=== PATIENT | female | born 1990 | race Caucasian/White ===

== ENCOUNTER 2024-05-20 00:03 | Inpatient (IN) ==
[2024-05-20] MEDS ORDERED: OXYTOCIN 30 UNITS/NSS 30 UNITS/500 ML BAG IV PRN (01:09)
[2024-05-20] MEDS ORDERED: LIDOCAINE 1% LOCAL 20 ML VIAL INFIL PRN (01:09)
[2024-05-20] MEDS: LACTATED RINGER'S 1,000 ML IV PRN (01:23)
[2024-05-20 01:55] LABS: Hematocrit (blood only) 37.1 % (37.0-47.0); Hemoglobin 12.4 g/dl (12.0-16.0); Mean Corpuscular Hemoglobin 27.4 pg (25.0-34.0); Mean Corpuscular Hgb Conc 33.4 g/dL (32.0-36.0); Mean Corpuscular Volume 81.9 fL (80.0-100.0); Mean Platelet Volume 10.5 fL (9.4-12.4); Platelet Count 255 K/uL (130-400); RDW Standard Deviation 40.7 fL (36.4-46.3); Red Blood Count 4.53 M/uL (4.20-5.40); White Blood Count 19.28 K/ul (4.8-10.8)
--- NOTE | 2024-05-20 04:23 | History & Physical Report ---
Date of Service May 20, 2024 Assessment & Plan (1) Supervision of elderly primigravida: Plan: PROM, patient is having some contractions but not yet a labor pattern. She is declining interventions at this time, declines use of Pitocin for labor contraction pattern. Does not desire epidural. She is aware of increased risk of infection after rupture of membranes. Will allow her to ambulate and reexamine, might be willing to consider Pitocin if not in labor by the morning. Admission and Anticipated Discharge Date Admission Date: May 20, 2024 History of Present Illness Chief Complaint: Leaking fluid Primary Care Provider: Tona Mccartney PA-C 33-year-old G1, P0 at 40 weeks 1 day, presented to labor and delivery after rupture of membranes for clear fluid at 8:30 PM on 05/19/2024. Positive movement, no vaginal bleeding. Is feeling contractions every few minutes. with advanced maternal age, otherwise uncomplicated. Group B strep negative. Allergies Allergy/AdvReac Type Severity Reaction Status Date / Time Penicillins Allergy Hives Verified 05/20/24 00:28 Home Medications Medication Instructions Recorded Confirmed Type prenat.vits,zohaib,[id number] 1 tab PO DAILY 10/04/23 05/20/24 History Patient History Surgical History S/P appendectomy Family History Mother Hypothyroid Psoriatic arthritis Father Hypertension Grandfather (Maternal) Myocardial infarction Grandmother (Maternal) Hypothyroid Family/Other Breast cancer great grandmother Grandmother (Paternal) Colorectal cancer, Onset Age: 70 Social History Smoking Status: Never smoker Do You Dip or Chew Tobacco: No; Hx Alcohol Use: No Hx Substance Use: No Preferred Language: Macedonian Communication Ability: Effective Assistant Account Executive Required: No Beliefs That Will Affect Care: None marital status: marital status details: Parag (30) [phone] Current Living Situation: Spouse Current Living Situation Comment: Parag current occupational status: unemployed Other Information That Helps Us Care for You: No Feels Safe at Home: Yes Safety Concerns: Feels Safe At This Time Assistive Devices: None Review of Systems All systems reviewed & are unremarkable except as noted in HPI & below Physical Exam Physical Exam: FHT category 1 Saxon irregular Cervix exam /-2, by RN. Grossly ruptured with positive nitrazine. Constitutional: WD/WN, vitals as above Respiratory: normal respiratory effort, lungs clear to auscultation no respiratory distress Cardiovascular: Rate/Rhythm: regular rate and regular rhythm Gastrointestinal (Abdomen): Inspection/Auscultation: abdomen normal to inspection Percussion/Palpation: abdomen soft; abdomen nontender Gravid. No s/s chorio or abruption. Skin: no rashes, warm and dry Psychiatric: A+Ox3, euthymic affect Results & Data Vital Signs (Past 12 Hours) Vital Signs Temp Pulse Resp BP 05/20/24 03:53 37.2 C 85 18 117/69 05/20/24 02:25 18 05/20/24 02:25 36.6 C 18 05/20/24 00:29 36.7 C 05/20/24 00:27 85 126/81 Coding Level of Care Code None Diagnoses Supervision of elderly primigravida O09.519
--- NOTE | 2024-05-20 08:09 | Labor Progress Brief Note ---
Date of Service May 20, 2024 Subjective Patient feels like ctx have spaced out. FHT Cat 1 Icard irreg SVE / Discussion about pitocin. She has not wanted to use this, voices concerns about quick transition and painful contractions. Discussed that her membranes have been ruptured since 8:30 last night, has not made cervical change. Recommended pitocin to improve contraction pattern with goal of vaginal delivery. Questions answered of both patient and FOB. She is agreeable, but would like to shower before starting pit. Will place orders. Assessment & Plan Admission and Anticipated Discharge Date Admission Date: May 20, 2024 Results & Data Vital Signs (Past 12 Hours) Vital Signs Temp Pulse Resp BP O2 Del Method 05/20/24 07:15 Room Air 05/20/24 07:08 90 114/69 05/20/24 06:47 37.0 C 05/20/24 05:19 18 05/20/24 05:19 37.4 C 86 18 119/66 05/20/24 03:53 37.2 C 85 18 117/69 05/20/24 02:25 18 05/20/24 02:25 36.6 C 18 05/20/24 00:29 36.7 C 20 05/20/24 00:27 85 126/81 Coding Level of Care Code None
[2024-05-20] MEDS: OXYTOCIN 30 UNITS/NSS 30 UNITS/500 ML BAG IV PRN (09:16)
[2024-05-20] MEDS: ONDANSETRON INJ 2 MG/ML 2 ML VIAL IV PRN (09:36)
--- NOTE | 2024-05-20 13:00 | Anesthesiology Consultation ---
Date of Service May 20, 2024 Assessment & Plan (1) Encounter for pre-operative examination: Chart Review Chart Review: Acceptable Risk for Labor Epidural History Height/Weight Height: 5 ft 4 in Weight: 80.739 kg Allergies Allergy/AdvReac Type Severity Reaction Status Date / Time Penicillins Allergy Hives Verified 05/20/24 00:28 Medications Home Medications Medication Instructions Recorded Confirmed Last Taken prenat.vits,zohaib,gzi-[id number]-ufttp 1 tab PO DAILY 10/04/23 05/20/24 05/17/24 Active Medications Generic Name Dose Route Start Last Admin Trade Name Freq PRN Reason Stop Dose Admin Oxytocin 30 units in 500 mls @ 7 mls/hr 05/20/24 01:09 05/20/24 11:40 Pitocin 30 Units/Nss IV 05/22/24 01:08 0.42 units/hr .Q24H PRN 7 mls/hr Labor Induction/Augmentation Titration Protocol 0.42 UNITS/HR Lactated Ringer's 1,000 mls @ 125 mls/hr 05/20/24 01:09 05/20/24 12:45 Lr IV 05/22/24 01:08 999 mls/hr .Q8H PRN Infusion L&D Protocol Protocol Ondansetron HCl 4 mg 05/20/24 09:31 05/20/24 09:36 Ondansetron Inj 2 Mg/Ml 2 Ml Vial IV 06/19/24 09:30 4 mg Q4H PRN Administration Nausea Past Medical History Medical History (Updated 05/20/24 @ 12:59 by Jerel Khoury MD) No pertinent past medical history Past Family History Family History Mother Hypothyroid Psoriatic arthritis Father Hypertension Grandfather (Maternal) Myocardial infarction Grandmother (Maternal) Hypothyroid Family/Other Breast cancer great grandmother Grandmother (Paternal) Colorectal cancer, Onset Age: 70 Past Surgical History Surgical History S/P appendectomy Social History Smoking Status: Never smoker Do You Dip or Chew Tobacco: No Hx Alcohol Use: No Hx Substance Use: No substance use type: does not use Physical Exam Vital Signs Last Vital Signs Temp 37.3 C 05/20/24 11:15 Pulse 89 05/20/24 12:56 Resp 18 05/20/24 11:15 BP 129/63 05/20/24 11:57 Pulse Ox 100 05/20/24 12:56 O2 Del Method Room Air 05/20/24 07:15 Testing Laboratory Results 05/20/24 01:27
[2024-05-20] MEDS: fentaNYL citrate PF 100 MCG/2 ML VIAL ONE (13:31)
[2024-05-20] MEDS: BUPIVACAINE 0.25% PF 30 ML VIAL ONE (13:31)
[2024-05-20] MEDS: LIDOCAINE 2%/EPINEPHRINE 1:200,000 20 ML PF ONE (13:31)
[2024-05-20] MEDS ORDERED: ONDANSETRON INJ 2 MG/ML 2 ML VIAL IV PRN ×2 (13:32→19:46)
[2024-05-20] MEDS ORDERED: BUPIVACAINE 0.25% PF 30 ML VIAL EPI PRN (13:32)
[2024-05-20] MEDS ORDERED: NALOXONE HCL 1 MG in SODIUM CHLORIDE 0.9% 1,000 ML IV PRN ×2 (13:32→19:46)
[2024-05-20] MEDS ORDERED: LIDOCAINE 2% MPF LOCAL 5 ML VIAL EPI PRN (13:32)
[2024-05-20] MEDS ORDERED: fentANYL 2 MCG/ML BUPIVacaine 0.125%-NSS 100ML BAG EPI PRN (13:32)
[2024-05-20] MEDS ORDERED: SODIUM CHLORIDE 0.9% PF INJ 10 ML VIAL EPI PRN (13:32)
[2024-05-20] MEDS ORDERED: fentaNYL citrate PF 100 MCG/2 ML VIAL EPI PRN (13:32)
[2024-05-20] MEDS ORDERED: NALOXONE HCL 0.4 MG/1 ML VIAL/CARP IV PRN ×2 (13:32→19:46)
[2024-05-20] MEDS ORDERED: ROPIVACAINE 0.5% PF 5 MG/ML 20 ML VIAL EPI PRN (13:32)
[2024-05-20] MEDS ORDERED: ePHEDrine sulfate 50 MG/ML AMP IV PRN ×2 (13:32→19:46)
[2024-05-20] MEDS: fentANYL 2 MCG/ML BUPIVacaine 0.125%-NSS 100ML BAG ONE (13:35)
[2024-05-20] MEDS: BUPIVACAINE 0.25% PF 30 ML VIAL EPI STA (13:52)
[2024-05-20] MEDS: LIDOCAINE 2%/EPINEPHRINE 1:200,000 20 ML PF EPI STA (13:53)
[2024-05-20] MEDS: SODIUM CHLORIDE 0.9% PF INJ 10 ML VIAL EPI STA (13:53)
[2024-05-20] MEDS: fentaNYL citrate PF 100 MCG/2 ML VIAL EPI STA (13:53)
--- NOTE | 2024-05-20 15:43 | Labor Progress Brief Note ---
Date of Service May 20, 2024 Patient was admitted with ruptured membranes over the evening by previous physician on-call she has excepted Pitocin and then became uncomfortable requested epidural heart rate category 1 her contractions while not perfect are occurring every 3 minutes sometimes every 2 minutes this is with external toco I have checked her cervix she is 1-1/2 cm 70% effaced -1 I do not think there is been any significant change since the previous exams although I have not done them reviewed we will continue to try and augment the contractions the patient also feels unwell with vomiting and are trying to hydrate as well Assessment & Plan Admission and Anticipated Discharge Date Admission Date: May 20, 2024 Results & Data Vital Signs (Past 12 Hours) Vital Signs Temp Pulse Resp BP Pulse Ox O2 Del Method 05/20/24 15:41 100 H 97 05/20/24 15:36 102 H 97 05/20/24 15:31 82 95 05/20/24 15:30 18 05/20/24 15:30 18 05/20/24 15:28 77 124/68 05/20/24 15:26 79 95 05/20/24 15:21 70 96 05/20/24 15:18 70 94 05/20/24 15:16 75 96 05/20/24 15:12 70 108/58 L 05/20/24 15:11 69 95 05/20/24 15:06 70 95 05/20/24 15:01 70 95 05/20/24 15:00 71 16 94 05/20/24 14:58 71 106/57 L 05/20/24 14:56 74 95 05/20/24 14:51 69 05/20/24 14:46 70 05/20/24 14:44 71 111/58 L 05/20/24 14:43 66 94 05/20/24 14:41 71 95 05/20/24 14:36 80 91 05/20/24 14:31 70 95 05/20/24 14:28 68 106/55 L 05/20/24 14:26 70 95 05/20/24 14:21 70 95 05/20/24 14:16 72 96 05/20/24 14:13 69 106/59 L 05/20/24 14:11 68 96 05/20/24 14:06 69 96 05/20/24 14:01 69 96 05/20/24 14:00 16 05/20/24 14:00 16 05/20/24 14:00 16 05/20/24 14:00 16 05/20/24 13:57 70 109/59 L 05/20/24 13:56 72 96 05/20/24 13:52 71 111/57 L 05/20/24 13:51 75 96 05/20/24 13:50 75 117/57 L 05/20/24 13:48 78 118/57 L 05/20/24 13:46 97 05/20/24 13:46 96 H 05/20/24 13:46 91 H 107/56 L 05/20/24 13:44 91 H 114/62 05/20/24 13:42 90 115/57 L 05/20/24 13:41 83 97 05/20/24 13:40 92 H 109/57 L 05/20/24 13:38 90 112/59 L 05/20/24 13:36 99 05/20/24 13:36 94 H 05/20/24 13:36 89 111/56 L 05/20/24 13:34 94 H 109/58 L 05/20/24 13:32 80 108/55 L 05/20/24 13:31 81 99 05/20/24 13:30 78 18 99/58 L 05/20/24 13:28 84 111/62 05/20/24 13:26 100 05/20/24 13:26 86 05/20/24 13:26 88 122/76 05/20/24 13:24 90 139/75 05/20/24 13:22 91 H 135/65 05/20/24 13:21 91 H 100 05/20/24 13:20 88 137/67 05/20/24 13:18 96 H 119/84 05/20/24 13:17 87 150/79 H 05/20/24 13:16 84 100 05/20/24 13:14 93 H 126/67 05/20/24 13:11 91 H 92 05/20/24 13:06 82 100 05/20/24 13:05 18 05/20/24 13:05 98.6 F 18 05/20/24 13:01 106 H 100 05/20/24 12:56 89 100 05/20/24 12:51 94 H 100 05/20/24 12:30 18 05/20/24 12:30 18 05/20/24 11:57 76 129/63 05/20/24 11:22 160 H 146/84 H 05/20/24 11:15 18 05/20/24 11:15 99.1 F 18 05/20/24 10:22 92 H 136/76 05/20/24 09:21 104 H 134/89 05/20/24 09:11 18 05/20/24 09:11 98.2 F 05/20/24 07:15 Room Air 05/20/24 07:08 90 114/69 05/20/24 06:47 98.6 F 05/20/24 05:19 18 05/20/24 05:19 99.3 F 86 18 119/66 05/20/24 03:53 99.0 F 85 18 117/69 Coding Level of Care Code None
[2024-05-20] MEDS: FAMOTIDINE 20MG IV PUSH 20 MG/5 ML SYR IV STA (16:11)
[2024-05-20] MEDS: ACETAMINOPHEN 325 MG TAB PO PRN (17:17)
--- NOTE | 2024-05-20 18:04 | Labor Progress Brief Note ---
Date of Service May 20, 2024 Cervix still 1 to 2 cm 70% effaced she has been ruptured membranes now for almost 22 hours her contractions are adequate in fact her frequency of contractions is 1-1/2 to 2 minutes I do not think I could increase the Pitocin at this stage I prefer not to use an IUPC in this situation. heart rate is currently category 1 earlier it was category 2 I think this might have been related to positioning or tachysystole Patient has a slight elevation in temperature she has been throwing up for most of the last 2 days though I am wondering if it was related to this but we also discussed the possibility of chorioamnionitis there is no heart rate elevation though I reviewed the situation in depth there has been really very slow progress and a slight temperature elevation I offered to continue induction and recheck her in an hour I also offered a at this stage we discussed why this would be an option specifically related to no real progress despite adequate contractions and additionally worry for prolonged rupture of membranes and subsequent infection. She will let us know her decision lengthy discussion section. The patient was counseled to the nature of the procedure including alternatives such as labor. Risks were discussed including bleeding infection injury to bowel bladder ureter vessels and even baby. Deep Vein thrombosis, pulmonary embolus discussed. Breakdown of incision reviewed. Deep vein thrombosis pulmonary embolus hernia and failure of the incision to heal were discussed Patient verbalized understanding of this and was given ample time to ask questions Assessment & Plan Admission and Anticipated Discharge Date Admission Date: May 20, 2024 Results & Data Vital Signs (Past 12 Hours) Vital Signs Temp Pulse Resp BP Pulse Ox O2 Del Method 05/20/24 17:56 92 H 97 05/20/24 17:51 97 H 97 05/20/24 17:48 18 05/20/24 17:48 99.3 F 18 05/20/24 17:46 92 H 97 05/20/24 17:41 92 H 97 05/20/24 17:36 94 H 97 05/20/24 17:31 104 H 129/75 97 05/20/24 17:26 129 H 97 05/20/24 17:21 127 H 96 05/20/24 17:16 111 H 97 05/20/24 17:11 108 H 96 05/20/24 17:06 18 05/20/24 17:06 99.7 F H 116 H 18 97 05/20/24 17:01 113 H 97 05/20/24 16:58 107 H 91 05/20/24 16:56 95 H 97 05/20/24 16:51 98 H 97 05/20/24 16:46 91 H 97 05/20/24 16:41 87 96 05/20/24 16:36 93 H 97 05/20/24 16:31 94 H 96 05/20/24 16:30 18 05/20/24 16:30 18 05/20/24 16:28 86 139/79 05/20/24 16:26 103 H 96 05/20/24 16:21 88 96 05/20/24 16:16 88 96 05/20/24 16:11 83 96 05/20/24 16:06 80 97 05/20/24 16:01 74 97 05/20/24 15:56 89 97 05/20/24 15:51 92 H 97 05/20/24 15:46 100 H 97 05/20/24 15:41 100 H 97 05/20/24 15:36 102 H 97 05/20/24 15:35 18 05/20/24 15:35 98.8 F 18 05/20/24 15:31 82 95 05/20/24 15:30 18 05/20/24 15:30 18 05/20/24 15:28 77 124/68 05/20/24 15:26 79 95 05/20/24 15:21 70 96 05/20/24 15:18 70 94 05/20/24 15:16 75 96 05/20/24 15:12 70 108/58 L 05/20/24 15:11 69 95 05/20/24 15:06 70 95 05/20/24 15:01 70 95 05/20/24 15:00 71 16 94 05/20/24 14:58 71 106/57 L 05/20/24 14:56 74 95 05/20/24 14:51 69 95 05/20/24 14:46 70 95 05/20/24 14:44 71 111/58 L 05/20/24 14:43 66 94 05/20/24 14:41 71 95 05/20/24 14:36 80 91 05/20/24 14:31 70 95 05/20/24 14:28 68 106/55 L 05/20/24 14:26 70 95 05/20/24 14:21 70 95 05/20/24 14:16 72 96 05/20/24 14:13 69 106/59 L 05/20/24 14:11 68 96 05/20/24 14:06 69 96 05/20/24 14:01 69 96 05/20/24 14:00 16 05/20/24 14:00 16 05/20/24 14:00 16 05/20/24 14:00 16 05/20/24 13:57 70 109/59 L 05/20/24 13:56 72 96 05/20/24 13:52 71 111/57 L 05/20/24 13:51 75 96 05/20/24 13:50 75 117/57 L 05/20/24 13:48 78 118/57 L 05/20/24 13:46 97 05/20/24 13:46 96 H 05/20/24 13:46 91 H 107/56 L 05/20/24 13:44 91 H 114/62 05/20/24 13:42 90 115/57 L 05/20/24 13:41 83 97 05/20/24 13:40 92 H 109/57 L 05/20/24 13:38 90 112/59 L 05/20/24 13:36 99 05/20/24 13:36 94 H 05/20/24 13:36 89 111/56 L 05/20/24 13:34 94 H 109/58 L 05/20/24 13:32 80 108/55 L 05/20/24 13:31 81 99 05/20/24 13:30 78 18 99/58 L 05/20/24 13:28 84 111/62 05/20/24 13:26 100 05/20/24 13:26 86 05/20/24 13:26 88 122/76 05/20/24 13:24 90 139/75 05/20/24 13:22 91 H 135/65 05/20/24 13:21 91 H 100 05/20/24 13:20 88 137/67 05/20/24 13:18 96 H 119/84 05/20/24 13:17 87 150/79 H 05/20/24 13:16 84 100 05/20/24 13:14 93 H 126/67 05/20/24 13:11 91 H 92 05/20/24 13:06 82 100 05/20/24 13:05 18 05/20/24 13:05 98.6 F 18 05/20/24 13:01 106 H 100 05/20/24 12:56 89 100 05/20/24 12:51 94 H 100 05/20/24 12:30 18 05/20/24 12:30 18 05/20/24 11:57 76 129/63 05/20/24 11:22 160 H 146/84 H 05/20/24 11:15 18 05/20/24 11:15 99.1 F 05/20/24 10:22 92 H 136/76 05/20/24 09:21 104 H 134/89 05/20/24 09:11 18 05/20/24 09:11 98.2 F 05/20/24 07:15 Room Air 05/20/24 07:08 90 114/69 05/20/24 06:47 98.6 F Coding Level of Care Code None
[2024-05-20] MEDS ORDERED: GENTAMICIN CONSULT ACTIVE PRN (18:37)
--- NOTE | 2024-05-20 18:41 | Labor Progress Brief Note ---
Date of Service May 20, 2024 Cervix still unchanged 1 to 2 cm there is now a tachycardia in the 160s at this stage she meets the criteria for CORHIO amnionitis. Start clinda and gent as penicillin allergy recommend patient agrees we discussed risks as mentioned in previous notes also increased risk of infection due to the current situation full informed consent range for low segment transverse section Assessment & Plan Admission and Anticipated Discharge Date Admission Date: May 20, 2024 Results & Data Vital Signs (Past 12 Hours) Vital Signs Temp Pulse Resp BP Pulse Ox O2 Del Method 05/20/24 18:36 104 H 97 05/20/24 18:31 96 H 97 05/20/24 18:29 106 H 140/80 05/20/24 18:26 105 H 96 05/20/24 18:21 100 H 97 05/20/24 18:16 101 H 97 05/20/24 18:11 98 H 97 05/20/24 18:06 96 H 97 05/20/24 18:01 100 H 97 05/20/24 17:56 92 H 97 05/20/24 17:51 97 H 97 05/20/24 17:48 18 05/20/24 17:48 99.3 F 18 05/20/24 17:46 92 H 97 05/20/24 17:41 92 H 97 05/20/24 17:36 94 H 97 05/20/24 17:31 104 H 129/75 97 05/20/24 17:26 129 H 97 05/20/24 17:21 127 H 96 05/20/24 17:16 111 H 97 05/20/24 17:11 108 H 96 05/20/24 17:06 18 05/20/24 17:06 99.7 F H 116 H 18 97 05/20/24 17:01 113 H 97 05/20/24 16:58 107 H 91 05/20/24 16:56 95 H 97 05/20/24 16:51 98 H 97 05/20/24 16:46 91 H 97 05/20/24 16:41 87 96 05/20/24 16:36 93 H 97 05/20/24 16:31 94 H 96 05/20/24 16:30 18 05/20/24 16:30 18 05/20/24 16:28 86 139/79 05/20/24 16:26 103 H 96 05/20/24 16:21 88 96 05/20/24 16:16 88 96 05/20/24 16:11 83 96 05/20/24 16:06 80 97 05/20/24 16:01 74 97 05/20/24 15:56 89 97 05/20/24 15:51 92 H 97 05/20/24 15:46 100 H 97 05/20/24 15:41 100 H 97 05/20/24 15:36 102 H 97 05/20/24 15:35 18 05/20/24 15:35 98.8 F 18 05/20/24 15:31 82 95 05/20/24 15:30 18 05/20/24 15:30 18 05/20/24 15:28 77 124/68 05/20/24 15:26 79 95 05/20/24 15:21 70 96 05/20/24 15:18 70 94 05/20/24 15:16 75 96 05/20/24 15:12 70 108/58 L 05/20/24 15:11 69 95 05/20/24 15:06 70 95 05/20/24 15:01 70 95 05/20/24 15:00 71 16 94 05/20/24 14:58 71 106/57 L 05/20/24 14:56 74 95 05/20/24 14:51 69 95 05/20/24 14:46 70 95 05/20/24 14:44 71 111/58 L 05/20/24 14:43 66 94 05/20/24 14:41 71 95 05/20/24 14:36 80 91 05/20/24 14:31 70 95 05/20/24 14:28 68 106/55 L 05/20/24 14:26 70 95 05/20/24 14:21 70 95 05/20/24 14:16 72 96 05/20/24 14:13 69 106/59 L 05/20/24 14:11 68 96 05/20/24 14:06 69 96 05/20/24 14:01 69 96 05/20/24 14:00 16 05/20/24 14:00 16 05/20/24 14:00 16 05/20/24 14:00 16 05/20/24 13:57 70 109/59 L 05/20/24 13:56 72 96 09/17/24 13:52 71 111/57 L 05/20/24 13:51 75 96 05/20/24 13:50 75 117/57 L 05/20/24 13:48 78 118/57 L 05/20/24 13:46 97 05/20/24 13:46 96 H 05/20/24 13:46 91 H 107/56 L 05/20/24 13:44 91 H 114/62 05/20/24 13:42 90 115/57 L 05/20/24 13:41 83 97 05/20/24 13:40 92 H 109/57 L 05/20/24 13:38 90 112/59 L 05/20/24 13:36 99 05/20/24 13:36 94 H 05/20/24 13:36 89 111/56 L 05/20/24 13:34 94 H 109/58 L 05/20/24 13:32 80 108/55 L 05/20/24 13:31 81 99 05/20/24 13:30 78 18 99/58 L 05/20/24 13:28 84 111/62 05/20/24 13:26 100 05/20/24 13:26 86 05/20/24 13:26 88 122/76 05/20/24 13:24 90 139/75 05/20/24 13:22 91 H 135/65 05/20/24 13:21 91 H 100 05/20/24 13:20 88 137/67 05/20/24 13:18 96 H 119/84 05/20/24 13:17 87 150/79 H 05/20/24 13:16 84 100 05/20/24 13:14 93 H 126/67 05/20/24 13:11 91 H 92 05/20/24 13:06 82 100 05/20/24 13:05 18 05/20/24 13:05 98.6 F 18 05/20/24 13:01 106 H 100 05/20/24 12:56 89 100 05/20/24 12:51 94 H 100 05/20/24 12:30 18 05/20/24 12:30 18 05/20/24 11:57 76 129/63 05/20/24 11:22 160 H 146/84 H 05/20/24 11:15 05/20/24 11:15 99.1 F 05/20/24 10:22 92 H 136/76 05/20/24 09:21 104 H 134/89 05/20/24 09:11 18 05/20/24 09:11 98.2 F 05/20/24 07:15 Room Air 05/20/24 07:08 90 114/69 05/20/24 06:47 98.6 F Coding Level of Care Code None
[2024-05-20] MEDS ORDERED: LACTATED RINGER'S 1,000 ML IV SCH ×3 (18:45→20:15)
[2024-05-20] MEDS ORDERED: PHENYLEPHRINE HCL 10 MG/ML VIAL ONE (18:58)
[2024-05-20] MEDS ORDERED: LIDOCAINE 2%/EPINEPHRINE 1:200,000 20 ML PF ONE (18:58)
[2024-05-20] MEDS ORDERED: ONDANSETRON INJ 2 MG/ML 2 ML VIAL ONE (18:58)
[2024-05-20] MEDS ORDERED: DEXAMETHASONE SOD INJ 4 MG/ML VIAL ONE (19:02)
[2024-05-20] MEDS ORDERED: KETOROLAC 30 MG/ML VIAL ONE (19:03)
[2024-05-20] MEDS: CLINDAMYCIN/D5W 900 MG/50 ML BAG IV SCH (19:12)
[2024-05-20] MEDS: CARBOPROST TROMETHAMINE 250 MCG/ML AMPUL IM ONE (19:35)
[2024-05-20] MEDS ORDERED: MoRPHine SULFATE PF 1 MG/ML 10 ML AMP/VIAL ONE (19:42)
[2024-05-20] MEDS ORDERED: OXYTOCIN 10 UNITS/ML VIAL ONE (19:42)
[2024-05-20] MEDS ORDERED: NALBUPHINE HCL INJ 10 MG/ML AMP IV PRN (19:46)
[2024-05-20] MEDS ORDERED: HYDROmorphone INJ 0.5 MG/0.5 ML SYR IV PRN (19:46)
[2024-05-20] MEDS ORDERED: PROMETHAZINE 6.25 MG/50.25 ML BAG IV PRN (19:46)
[2024-05-20] MEDS ORDERED: LACTATED RINGER'S 500 ML IV PRN (19:46)
[2024-05-20] MEDS ORDERED: MEPERIDINE HCL 25 MG/ML CARP/VIAL IV PRN (19:46)
[2024-05-20] MEDS ORDERED: METOCLOPRAMIDE HCL 20 MG in SODIUM CHLORIDE 0.9% 50 ML IV PRN (19:46)
[2024-05-20] MEDS ORDERED: DROPERIDOL 5 MG/2 ML VIAL IV PRN (19:46)
[2024-05-20] MEDS ORDERED: diphenhydrAMINE 50 MG/ML VIAL IV PRN (19:46)
[2024-05-20] MEDS ORDERED: KETOROLAC 30 MG/ML VIAL IV PRN (19:46)
[2024-05-20] MEDS ORDERED: NALOXONE HCL 0.08 MG in SYRINGE 1.8 ML IV PRN (19:46)
--- NOTE | 2024-05-20 19:48 | Communication Note ---
Date of Service: May 20, 2024 Decision was made to proceed with c section secondary to failure to progress as well as chorio and tachycardia. Epidural working well. Consented patient for anesthesia. ASA 2E.
[2024-05-20] MEDS ORDERED: NO NARCOTICS OR SEDATIVES SCH (20:00)
[2024-05-20] MEDS ORDERED: DC INTRASPINAL MORPHINE SCH (20:00)
[2024-05-20 20:01] LABS: Base Excess Cord Venous Blood -3.3 mEq/L (-7.7-1.9); Cord Venous Blood HCO3 22 mmol/L (18.4-26.8); Cord Venous Blood PCO2 40 mmHg (30.4-57.2); Cord Venous Blood PO2 31 mmHg (14.1-43.3); Cord Venous Blood pH 7.35 (7.20-7.44); O2 Saturation Cord Venous Bld 63.9 % (<68)
[2024-05-20 20:02] LABS: Base Excess Cord Arterial Bld -2.9 mEq/L (-9-1.8); CO2 Cord Arterial Blood 54 mmHg (39.1-73.5); HCO3 Cord Arterial Blood 25 mmol/L (19.7-28.5); Oxygen Sat Cord Arterial Blood < 60.0 % (<60); PO2 Cord Arterial Blood < 20 mmHg (4.1-31.7); pH Cord Arterial Blood 7.27 (7.1-7.38)
[2024-05-20] MEDS ORDERED: MAGNESIUM HYDROXIDE SUSP 30 ML UDC PO PRN (20:05)
[2024-05-20] MEDS ORDERED: BENZOCAINE 20% SPRY 85 APPLN/85 GM CAN EXT PRN (20:05)
[2024-05-20] MEDS ORDERED: HYDROCORTISONE ACETATE 25 MG SUPP PR PRN (20:05)
[2024-05-20] MEDS ORDERED: SENNA 8.6 MG TAB PO PRN (20:05)
[2024-05-20] MEDS ORDERED: CALCIUM CARBONATE 500 MG CHEWABLE TAB PO PRN (20:05)
--- NOTE | 2024-05-20 20:09 | Operative Report ---
Post Operative Report Pre & Post Diagnosis Operation Date: 05/20/24 19:05 Pre-Op Diagnosis: tachycardia, failure to progress Post-Op Diagnosis: tachycardia, faliue to progress I identified the patient and participated in the time-out.: Yes Procedure Operation Date: 05/20/24 19:05 Actual Procedures p Section in LD(Bilateral) - Satish Garcia MD, FACOG Surgeon Satish Garcia MD, FACOG Marketing Planning Manager . Quantitative Blood Loss (QBL) 805 Findings Consistent with Post-Op Diagnosis Specimens cord blood, gases Description of Procedure Regional anesthetic had been given by anesthesia patient was prepped and draped with a leftward tilt preoperative antibiotics had been given in appropriate timing by anesthesiology. Once the prep was allowed to fully dry timeout was performed. Pickups with teeth were used to test the incision area was found to be adequate for incision as the patient did not feel sharp pain. Scalpel was used to make a Pfannenstiel incision on the lower abdomen. We then cut through the subcutaneous fat down to the level of the anterior rectus sheath fascia this was cut in the midline and then extended laterally with the curved Guillen scissors. At this stage we then placed 2 James clamps on the anterior aspect of the fascia. Using the curved Guillen's we are able to dissect the fascia superiorly away from the rectus muscles. Care was taken to maintain hemostasis. James clamps were then placed to the inferior aspect of the anterior sheath of the fascia. Fascia was then dissected away from the rectus muscles inferiorly towards the pubic bone. A James was then placed in the midline both inferiorly and superiorly. This was to allow exposure by retraction rectus muscles were in the midline with were then able to cut through the peritoneum and then enter the peritoneal cavity. Opening was enlarged to allow exposure of the peritoneal cavity both superiorly and inferiorly. Once adequate space was obtained a bladder retractor was placed to expose the lower segment Metzenbaums were used to dissect the bladder flap inferiorly away from the uterus. This was done sharply bladder retractor was then repositioned to expose the lower segment of the uterus Fresh scalpel was used to make a low transverse incision on the uterus. Uterus was then entered bluntly with the operators finger, membranes ruptured and the opening was enlarged using the operators fingers bluntly pulling superiorly and inferiorly to allow exposure. Note there was a nuchal cord by the head and also thick meconium no the adnexa were normal as was the uterus I also gave Baby was delivered by first flexion of the head elevation of the head out of the pelvis and then pressure by the executive chef assistant on the maternal abdomen. Baby's head was then delivered mouth and then nares were suctioned and then using gentle traction the baby was fully delivered. Live vigorous infant. Fluid was clear cord clamped and cut cord gases obtained cord blood obtained baby handed to pediatrics. Placenta removed was removed with traction we ensure the entire placenta was removed with a moist lap sponge into the uterus Uterus was then exteriorized. IV Pitocin had been started by anesthesia tone improved there were no extensions the uterus was then closed using 0 Monocryl in a 2 layer closure the first layer closed in a running locked fashion from left to right and then a second closure from left to right in a running nonlocked fashion. At this stage hemostasis was excellent. Uterus was placed back in the peritoneal cavity with suction irrigation out and inspection of the uterus at this stage revealed excellent hemostasis Retractors were removed urine color was clear at this stage of the case we inspected the rectus muscles they were hemostatic fascia was closed with 0 Vicryl subcutaneous fat was irrigated and closed with 3-0 Vicryl skin closed with 4-0 subcuticular Monocryl Intra uterine Hemabate as the tone was somewhat poor initially after delivery after the Hemabate which we carefully injected muscular and not intravascular tone improved remarkably I attest to the content of the Intraoperative Record and any orders documented therein. Any exceptions are noted below. OB Procedure Charges 75327
--- NOTE | 2024-05-20 20:34 | Anesthesiology Progress Note ---
Date of Service May 20, 2024 Anesthesia Post Procedure Vital Signs Vital Signs: Temp Pulse Resp BP Pulse Ox O2 Del Method 05/20/24 20:31 95 H 97 05/20/24 20:29 37.0 C 18 05/20/24 20:28 100 H 106/54 L 05/20/24 20:26 102 H 98 05/20/24 20:21 103 H 98 05/20/24 20:18 101 H 115/60 05/20/24 20:16 93 H 97 05/20/24 20:11 92 H 98 05/20/24 20:06 91 H 119/65 98 05/20/24 19:05 91 H 124/68 05/20/24 19:01 99 H 97 05/20/24 18:56 98 H 97 05/20/24 18:51 93 H 97 05/20/24 18:46 97 H 97 05/20/24 18:41 98 H 96 05/20/24 18:36 104 H 97 05/20/24 18:31 96 H 97 05/20/24 18:29 106 H 140/80 05/20/24 18:26 105 H 96 05/20/24 18:21 100 H 97 05/20/24 18:16 101 H 97 05/20/24 18:11 98 H 97 05/20/24 18:06 96 H 97 05/20/24 18:01 100 H 97 05/20/24 17:56 92 H 97 05/20/24 17:51 97 H 97 05/20/24 17:48 18 05/20/24 17:48 37.4 C 18 05/20/24 17:46 92 H 97 05/20/24 17:41 92 H 97 05/20/24 17:36 94 H 97 05/20/24 17:31 104 H 129/75 97 05/20/24 17:26 129 H 97 05/20/24 17:21 127 H 96 05/20/24 17:16 111 H 97 05/20/24 17:11 108 H 96 05/20/24 17:06 18 05/20/24 17:06 37.6 C H 116 H 18 97 05/20/24 17:01 113 H 97 05/20/24 16:58 107 H 91 05/20/24 16:56 95 H 97 05/20/24 16:51 98 H 97 05/20/24 16:46 91 H 97 05/20/24 16:41 87 96 05/20/24 16:36 93 H 97 05/20/24 16:31 94 H 96 05/20/24 16:30 18 05/20/24 16:30 18 05/20/24 16:28 86 139/79 05/20/24 16:26 103 H 96 05/20/24 16:21 88 96 05/20/24 16:16 88 96 05/20/24 16:11 83 96 05/20/24 16:06 80 97 05/20/24 16:01 74 97 05/20/24 15:56 89 97 05/20/24 15:51 92 H 97 05/20/24 15:46 100 H 97 05/20/24 15:41 100 H 97 05/20/24 15:36 102 H 97 05/20/24 15:35 18 05/20/24 15:35 37.1 C 18 05/20/24 15:31 82 95 05/20/24 15:30 18 05/20/24 15:30 18 05/20/24 15:28 77 124/68 05/20/24 15:26 79 95 05/20/24 15:21 70 96 05/20/24 15:18 70 94 05/20/24 15:16 75 96 05/20/24 15:12 70 108/58 L 05/20/24 15:11 69 95 05/20/24 15:06 70 95 05/20/24 15:01 70 95 05/20/24 15:00 71 16 94 05/20/24 14:58 71 106/57 L 05/20/24 14:56 74 95 05/20/24 14:51 69 95 05/20/24 14:46 70 95 05/20/24 14:44 71 111/58 L 05/20/24 14:43 66 94 05/20/24 14:41 71 95 05/20/24 14:36 80 91 05/20/24 14:31 70 95 05/20/24 14:28 68 106/55 L 05/20/24 14:26 70 95 05/20/24 14:21 70 95 05/20/24 14:16 72 96 05/20/24 14:13 69 106/59 L 05/20/24 14:11 68 96 05/20/24 14:06 69 96 05/20/24 14:01 69 96 05/20/24 14:00 16 05/20/24 14:00 16 05/20/24 14:00 16 05/20/24 14:00 16 05/20/24 13:57 70 109/59 L 05/20/24 13:56 72 96 05/20/24 13:52 71 111/57 L 05/20/24 13:51 75 96 05/20/24 13:50 75 117/57 L 05/20/24 13:48 78 118/57 L 05/20/24 13:46 97 05/20/24 13:46 96 H 05/20/24 13:46 91 H 107/56 L 05/20/24 13:44 91 H 114/62 05/20/24 13:42 90 115/57 L 05/20/24 13:41 83 97 05/20/24 13:40 92 H 109/57 L 05/20/24 13:38 90 112/59 L 05/20/24 13:36 99 05/20/24 13:36 94 H 05/20/24 13:36 89 111/56 L 05/20/24 13:34 94 H 109/58 L 05/20/24 13:32 80 108/55 L 05/20/24 13:31 81 99 05/20/24 13:30 78 18 99/58 L 05/20/24 13:28 84 111/62 05/20/24 13:26 100 05/20/24 13:26 86 05/20/24 13:26 88 122/76 05/20/24 13:24 90 139/75 05/20/24 13:22 91 H 135/65 05/20/24 13:21 91 H 100 05/20/24 13:20 88 137/67 05/20/24 13:18 96 H 119/84 05/20/24 13:17 87 150/79 H 05/20/24 13:16 84 100 05/20/24 13:14 93 H 126/67 05/20/24 13:11 91 H 92 05/20/24 13:06 82 100 05/20/24 13:05 18 05/20/24 13:05 37.0 C 18 05/20/24 13:01 106 H 100 05/20/24 12:56 89 100 05/20/24 12:51 94 H 100 05/20/24 12:30 18 05/20/24 12:30 18 05/20/24 11:57 76 129/63 05/20/24 11:22 160 H 146/84 H 05/20/24 11:15 18 05/20/24 11:15 37.3 C 18 05/20/24 10:22 92 H 136/76 05/20/24 09:21 104 H 134/89 05/20/24 09:11 18 05/20/24 09:11 36.8 C 18 05/20/24 07:15 Room Air 05/20/24 07:08 90 114/69 05/20/24 06:47 37.0 C 05/20/24 05:19 18 05/20/24 05:19 37.4 C 86 18 119/66 05/20/24 03:53 37.2 C 85 18 117/69 05/20/24 02:25 18 05/20/24 02:25 36.6 C 05/20/24 00:29 36.7 C 20 05/20/24 00:27 85 126/81 Pain Intensity Abdomen: Pain Intensity: 2 Transfer of Care Handoff Completed per policy Notes Mental Status: alert / awake / arousable Patient Amnestic to Procedure: Yes Nausea / Vomiting: adequately controlled Pain: adequately controlled Airway Patency, RR, SpO2: stable & adequate BP & HR: stable & adequate Hydration State: stable & adequate Neuraxial Anesthesia: was administered and sensory block is resolving Anesthetic Complications: no major complications apparent and Pt Satisfied with anesthetic care
--- NOTE | 2024-05-20 20:34 | Anesthesia Procedure Note ---
Date of Service May 20, 2024 Anesthesia Post Epidural Note Vital Signs Vital Signs: Temp Pulse Resp BP Pulse Ox O2 Del Method 37.0 C 95 H 18 106/54 L 97 Room Air 05/20/24 20:29 05/20/24 20:31 05/20/24 20:29 05/20/24 20:28 05/20/24 20:31 05/20/24 07:15 Pain Intensity Abdomen: Pain Intensity: 2 Notes Mental Status: alert / awake / arousable and participated in evaluation Nausea / Vomiting: adequately controlled Pain: adequately controlled Airway Patency, RR, SpO2: stable & adequate BP & HR: stable & adequate Hydration State: stable & adequate Neuraxial Anesthesia: was administered and sensory block is resolving Anesthetic Complications: no major complications apparent Epidural: Removed without complications and With tip intact
[2024-05-20] MEDS: ACETAMINOPHEN 500 MG TAB PO SCH (20:46)
[2024-05-20] MEDS: SODIUM CHLORIDE 0.9% PF INJ 10 ML VIAL ONE (20:46)
[2024-05-20] MEDS: CITRIC ACID/SODIUM CITRATE 15 ML UDC PO SCH (20:46)
[2024-05-20] MEDS: GENTAMICIN SULFATE 320 MG in DEXTROSE 5% 100 ML IV SCH (20:46)
[2024-05-20] MEDS: ePHEDrine sulfate 50 MG/ML AMP ONE (20:46)
[2024-05-20] MEDS: DIPHTHER/TETAN/PERTUS Vaccine (Tdap, Adol/Adult) 0.5mL IM ONE (20:48)
[2024-05-20] MEDS ORDERED: Nursing to Pharmacy Communication SCH (21:00)
[2024-05-20] MEDS: OXYTOCIN 20 UNITS/LR 1,002 ML IV SCH (22:20)
[2024-05-20] MEDS ORDERED: SODIUM CHLORIDE 0.9% 250 ML IV PRN (22:46)
[2024-05-20] MEDS: DOCUSATE SODIUM 100 MG CAP PO SCH (23:55)
[2024-05-20] MEDS: SIMETHICONE 80 MG CHEW PO SCH (23:55)
[2024-05-21] MEDS: ACETAMINOPHEN 325 MG TAB PO SCH ×2 (03:26→09:28)
[2024-05-21] MEDS: CLINDAMYCIN/D5W 600 MG/50 ML BAG IV SCH (03:38)
[2024-05-21] MEDS: IBUPROFEN 600 MG TAB PO SCH (05:55)
[2024-05-21] MEDS: SODIUM CHLORIDE 0.9% 1,000 ML IV SCH (07:26)
[2024-05-21] MEDS: MoRPHine SULFATE PF 1 MG/ML 10 ML AMP/VIAL EPI ONE (07:26)
[2024-05-21] MEDS ORDERED: Nursing to Pharmacy Communication SCH ×3 (07:30→07:45)
--- NOTE | 2024-05-21 07:52 | Obstetrical Progress Note ---
Date of Service May 21, 2024 Assessment & Plan (1) delivery delivered: Plan: 1st POD Doing well. Remove bandage later Encouraged ambulation and . Continue normal OB diet. Discharge after 48 hours complete; tomorrow evening; probable dis next morning after that. Admission and Anticipated Discharge Date Admission Date: May 20, 2024 Supervising Physician Co-Signing Physician Notes Resident Physician Supervision Note: I was present with [Name of resident] during the history and exam. I discussed the case with the resident and agree with the findings and plan as documented in the note. Any exceptions or clarifications are listed here: [None] Documented By: Satish Garcia MD, FACOG Subjective 1st POD foll EM LTCS for tachycardia post induction Intraop: Nuchal cord Today morning: No active complain Lochia: Moderate Bottle feeding: no Br issue Gas pass: No Felix's Out Has not peed after felix's out. Pain mild Vitals: Stable Review of Systems Review of Systems: As per HPI Physical Exam Physical Exam: General: Alert and oriented. No acute distress. CV: Regular rate and rhythm. No murmurs. Respiratory: CTA bilaterally. No rhonchi, wheezes, or crackles. No increased work of breathing. Abdomen: Positive bowel sounds. Soft, nontender, and nondistended. Uterus: Fundus firm and palpable few cms below umbilicus. Surgical scar clean and healing well. Lower extremities: No LE edema. No deep calf pain. Rosalina's negative bilaterally. Results & Data Vital Signs (Past 12 Hours) Vital Signs Temp Pulse Pulse Resp BP BP Pulse Ox 05/21/24 05:05 18 99 05/21/24 04:05 16 98 05/21/24 03:35 36.7 C 74 16 102/65 97 05/21/24 03:05 18 98 05/21/24 02:05 18 98 05/21/24 01:00 18 97 05/20/24 23:25 36.6 C 67 18 104/66 98 05/20/24 23:25 18 97 05/20/24 22:09 91 H 104/64 05/20/24 22:07 37.2 C 18 05/20/24 22:06 85 98 05/20/24 22:01 86 97 05/20/24 21:56 93 H 97 05/20/24 21:51 87 98 05/20/24 21:46 92 H 97 05/20/24 21:41 92 H 97 05/20/24 21:40 100 H 117/69 05/20/24 21:37 18 05/20/24 21:36 87 97 05/20/24 21:31 90 97 05/20/24 21:26 97 H 96 05/20/24 21:21 94 H 97 05/20/24 21:16 96 H 97 05/20/24 21:11 91 H 97 05/20/24 21:08 96 H 114/62 05/20/24 21:07 37.2 C 18 05/20/24 21:07 37.2 C 18 05/20/24 21:06 96 H 97 05/20/24 21:01 92 H 97 05/20/24 20:57 18 05/20/24 20:56 98 H 98 05/20/24 20:51 97 H 97 05/20/24 20:48 85 97/55 L 05/20/24 20:47 18 05/20/24 20:46 87 97 05/20/24 20:41 92 H 97 05/20/24 20:38 100 H 110/63 05/20/24 20:37 18 05/20/24 20:36 95 H 97 05/20/24 20:31 95 H 97 05/20/24 20:29 37.0 C 18 05/20/24 20:28 100 H 106/54 L 05/20/24 20:27 18 05/20/24 20:26 102 H 98 05/20/24 20:21 103 H 98 05/20/24 20:18 101 H 115/60 05/20/24 20:17 18 05/20/24 20:16 93 H 97 05/20/24 20:11 92 H 98 05/20/24 20:06 91 H 119/65 98 O2 Del Method 05/21/24 05:05 05/21/24 04:05 05/21/24 03:35 Room Air 05/21/24 03:05 05/21/24 02:05 05/21/24 01:00 05/20/24 23:25 Room Air 05/20/24 23:25 05/20/24 22:09 05/20/24 22:07 05/20/24 22:06 05/20/24 22:01 05/20/24 21:56 05/20/24 21:51 05/20/24 21:46 05/20/24 21:41 05/20/24 21:40 05/20/24 21:37 05/20/24 21:36 05/20/24 21:31 05/20/24 21:26 05/20/24 21:21 05/20/24 21:16 05/20/24 21:11 05/20/24 21:08 05/20/24 21:07 05/20/24 21:07 05/20/24 21:06 05/20/24 21:01 05/20/24 20:57 05/20/24 20:56 05/20/24 20:51 05/20/24 20:48 05/20/24 20:47 05/20/24 20:46 05/20/24 20:41 05/20/24 20:38 05/20/24 20:37 05/20/24 20:36 05/20/24 20:31 05/20/24 20:29 05/20/24 20:28 05/20/24 20:27 05/20/24 20:26 05/20/24 20:21 05/20/24 20:18 05/20/24 20:17 05/20/24 20:16 05/20/24 20:11 05/20/24 20:06 Resident Activity Tracking Resident Involvement: Resident Care Provided Care Provided: OB Delivery
[2024-05-21 07:58] LABS: Basophils # (auto) 0.02 K/uL (0.00-0.20); Basophils % (auto) 0.1 %; Eosinophils # (auto) 0.01 K/uL (0.00-0.50); Eosinophils % (auto) 0.1 %; Hematocrit (blood only) 27.3 % (37.0-47.0); Immature Granulocytes % (auto) 0.7 %; Lymphocytes # (auto) 0.81 K/uL (1.20-3.40); Lymphocytes % (auto) 5.8 %; Mean Corpuscular Hemoglobin 27.7 pg (25.0-34.0); Mean Platelet Volume 10.3 fL (9.4-12.4); Monocytes # (auto) 0.92 K/uL (0.11-0.59); Monocytes % (auto) 6.6 %; Neutrophils # (auto) 12.01 K/uL (1.40-6.50); Neutrophils % (auto) 86.7 %; Platelet Count 175 K/uL (130-400); RDW Standard Deviation 42.9 fL (36.4-46.3); Red Blood Count 3.25 M/uL (4.20-5.40); White Blood Count 13.87 K/ul (4.8-10.8)
[2024-05-21] MEDS: FERROUS SULFATE 325 MG TAB PO SCH (09:25)
[2024-05-21] MEDS: PRENATAL VITAMIN 1 TAB PO SCH (09:25)
[2024-05-21] MEDS ORDERED: HYDROmorphone INJ 0.5 MG/0.5 ML SYR IV PRN (13:48)
[2024-05-21] MEDS ORDERED: diphenhydrAMINE 50 MG/ML VIAL IV PRN (13:48)
[2024-05-21] MEDS ORDERED: oxyCODONE HCL IR 5 MG TAB (IMMEDIATE RELEASE) PO PRN (13:48)
[2024-05-21] MEDS ORDERED: PROMETHAZINE 12.5 MG/50.5 ML BAG IV PRN (13:48)
[2024-05-21] MEDS ORDERED: diphenhydrAMINE Capsule 25 MG CAP PO PRN (13:48)
[2024-05-21] MEDS ORDERED: ONDANSETRON INJ 2 MG/ML 2 ML VIAL IV PRN (13:58)
[2024-05-21] MEDS: bisacodyL 5 MG TABEC PO SCH (21:53)
[2024-05-22 06:11] VITALS: RESP 18
[2024-05-22 06:52] LABS: Hematocrit (blood only) 29.1 % (37.0-47.0); Hemoglobin 9.5 g/dl (12.0-16.0)
--- NOTE | 2024-05-22 07:17 | Obstetrical Progress Note ---
Date of Service May 22, 2024 Assessment & Plan (1) delivery delivered: Plan: 2ND POD foll Em LTCS for tachycardia at term. Doing well. Removed bandage; Wound healthy and dry. Continue normal OB diet. Discharge today by evening if she is willing to. She will decide later and let us know. Admission and Anticipated Discharge Date Admission Date: May 20, 2024 Supervising Physician Co-Signing Physician Notes Resident Physician Supervision Note: I interviewed and examined the patient. Discussed with Dr. Grissom and agree with findings and plan as documented in the note. Any exceptions or clarifications are listed here: POD2 s/p CS, doing well. VSS, exam benign and wnl. Thinks would like dc home this evening, ok to do so Documented By: Theresa Castellanos MD Subjective 2nd POD foll EM LTCS for tachycardia post induction Intraop: Nuchal cord Today morning: No active complain Lochia: Moderate Bottle feeding: no Br issue Gas pass: yes Ribera's Out yesterday: urination normally Pain mild Bowel movement today morning Vitals: Stable Review of Systems Review of Systems: As per HPI Physical Exam Physical Exam: General: Alert and oriented. No acute distress. CV: Regular rate and rhythm. No murmurs. Respiratory: CTA bilaterally. No rhonchi, wheezes, or crackles. No increased work of breathing. Abdomen: Positive bowel sounds. Soft, nontender, and nondistended. Uterus: Fundus firm and palpable midway between umbilicus and pubis. Surgical scar clean and healing well. Lower extremities: No LE edema. No deep calf pain. Rosalina's negative bilaterally. Results & Data Vital Signs (Past 12 Hours) Vital Signs Temp Pulse Resp BP Pulse Ox O2 Del Method 05/22/24 04:30 36.4 C L 88 18 116/79 97 Room Air 05/22/24 01:00 36.5 C 89 20 105/69 98 Room Air 05/21/24 21:15 37.2 C 90 18 110/71 97 Room Air
[2024-05-22 18:08] VITALS: BP 107/70; TEMP 97.9; O2SAT 99
[2024-05-22] MEDS ORDERED: bisacodyL 10 MG SUPP PR PRN (20:01)
[2024-05-22 21:27] VITALS: PULSE 88
[2024-05-23] MEDS ORDERED: IBUPROFEN 600 MG TAB PO PRN (01:01)
[2024-05-23] MEDS ORDERED: ACETAMINOPHEN 325 MG TAB PO PRN (01:01)
--- NOTE | 2024-05-23 06:14 | Coding Query ---
CODING QUERY To promote full compliance with coding requirements relating to patient care, provider participation is requested in all cases of information coder uncertainty. Please assist us with the question(s) below: Coding Question(s): There is documentation of chorioamnionitis within the record that doesn't follow through to discharge. Could you please clarify the status of chorioamnionitis by placing an 'x' in the applicable set of parenthesis? Chorioamnionitis, POA ( ) Chorioamnionitis, not POA ( ) Chorioamnionitis ruled out ( ) Labor progress note from 05/20 18:40 notes "Cervix still unchanged 1 to 2 cm there is now a tachycardia in the 160s at this stage she meets the criteria for CORHIO amnionitis" and Communication Report also notes "Decision was made to proceed with c section secondary to failure to progress as well as chorio" Physician's Response(s): I was not taking care of this patient on 05/20 at 18:40 to make this diagnosis - please contact the doctor that was investment professional at that time. Thank you Ana Laura Osborn Principal Diagnosis: "that condition established after study, to be chiefly responsible for occasioning the admission of the patient to the hospital for care." Co-Existing Principal Diagnosis: "when two or more diagnoses equally meet the criteria for principal diagnosis as determined by the circumstances of admission, diagnostic work up, and/or therapy provided, and the Alphabetic Index, Tabular List, or another coding guideline does not provide sequencing direction, any one of the diagnoses may be sequenced first." "When the physician has documented what appears to be a current diagnosis in the body of the record, but has not included the diagnosis in the final diagnostic statement, the physician should be asked whether the diagnosis should be added." (Source [facility] 2 QTR90. p3-4) DREWD
--- NOTE | 2024-05-26 08:59 | Discharge Summary ---
Date of Service May 26, 2024 Admission HPI Per Admitting Provider 33-year-old G1, P0 at 40 weeks 1 day, presented to labor and delivery after rupture of membranes for clear fluid at 8:30 PM on 05/19/2024. Positive movement, no vaginal bleeding. Is feeling contractions every few minutes. with advanced maternal age, otherwise uncomplicated. Group B strep negative. Admission Exam (Per Admitting) Constitutional WD/WN, vitals as above well developed and well nourished Respiratory normal respiratory effort, lungs clear to auscultation normal respiratory effort Cardiovascular RRR, no murmur, no edema Gastrointestinal (Abdomen) normal bowel sounds, soft, nontender, no hepatosplenomegaly Discharge Data Procedures Performed Operation Date: 05/20/24 19:05 Actual Procedures p Section in LD(Bilateral) - Satish Garcia MD, [facility] Course (1) delivery delivered: 2ND POD foll Em LTCS for tachycardia at term. Doing well. Removed bandage; Wound healthy and dry. Continue normal OB diet. Discharge today by evening if she is willing to. She will decide later and let us know. Supervising Physician Co-Signing Physician Notes Resident Physician Supervision Note: I interviewed and examined the patient. Discussed with Dr. Grissom and agree with findings and plan as documented in the note. Any exceptions or clarifications are listed here: POD2 s/p CS, doing well. VSS, exam benign and wnl. Thinks would like dc home this evening, ok to do so Documented By: Theresa Castellanos MD Coding Level of Care Code None Diagnoses delivery delivered O82
== END 2024-05-22 21:27 | disposition home or self-care (01) | DRG 788 ==
LOC: OPB 00:03 → 4S1 00:08 → 4E2 23:46
DX: O42.02 Full-term premature rupture of membranes, onset of labor within 24 hours of rupture; O69.81X0 Labor and delivery complicated by cord around neck, without compression, not applicable or unspecified; O21.9 Vomiting of pregnancy, unspecified; O62.9 Abnormality of forces of labor, unspecified; Z37.0 Single live birth; O77.0 Labor and delivery complicated by meconium in amniotic fluid; Z88.0 Allergy status to penicillin; Z3A.40 40 weeks gestation of pregnancy; O76 Abnormality in fetal heart rate and rhythm complicating labor and delivery